=== PATIENT | female | born 1995 | race African-American/Black ===

== ENCOUNTER 2024-10-02 14:26 | Outpatient (RCR) | payer BC, MEDICAID, SELFPAY ==
[2024-09-11 13:40] VITALS: BP 132/62; PULSE 88; BMI 63.1
[2024-09-18 16:48] VITALS: BP 148/74; PULSE 100
[2024-09-25 16:29] VITALS: BP 137/74; PULSE 94
--- NOTE | ~2024-10-02 | US_ITS ---
LIMITED OBSTETRIC ULTRASOUND/BIOPHYSICAL PROFILE Ordering provider: Angelito Berry MD History: . Y . Comparison: None. FINDINGS: MATERNAL CERVIX: Not visualized. cm which is normal (normal is equal to or greater than 3.0 cm). PRESENTATION: Vertex Longitudinal lie. PLACENTAL LOCATION: Posterior fundal. No previa. HEART RATE: 136 bpm (normal is between 110 to 160 bpm). AMNIOTIC FLUID INDEX: 12.9 cm. 5th percentile is 7.7 cm. 95th percentile is 24.4 cm. Largest vertica l pocket is 6.4 cm. normal (NUVIA between 5-25 cm in from 20-35 weeks gestation is considered normal). OTHER: Maternal ovaries not visualized. SCORE: breathing movements: 2 movements: 2 tone: 2 Amniotic fluid volume: 2 Total: 8 IMPRESSION: Normal biophysical profile. Reviewed, dictated and finalized at location A. IMPRESSION: Normal biophysical profile.
[2024-10-02 14:26] VITALS: BP 130/78; PULSE 98
== END 2024-10-25 09:57 | disposition other institution (70) ==
LOC: ANHOBOP 14:26
PROVIDERS: Visit Provider Obstetrics & Gynecology
DX: O26.03 Excessive weight gain in pregnancy, third trimester (principal); Z3A.34 34 weeks gestation of pregnancy
CPT/HCPCS: 59025; 76815; 76819

== ENCOUNTER 2024-10-11 12:39 | Outpatient (CLI) | payer BC, MEDICAID, SELFPAY ==
[2024-10-11 13:16] LABS: Hematocrit 28.7 % (37.0-47.0); Hemoglobin 8.4 g/dL (12.0-15.0); Mean Corpuscular HGB Conc 29.3 g/dl (32-36); Mean Corpuscular Hemoglobin 21.8 pg (26-34); Mean Corpuscular Volume 74.4 fl (80-100); Mean Platelet Volume 8.5 fl (7.4-10.4); Platelet Count Result 332 k/mm3 (150-375); Red Blood Count 3.86 M/mm3 (4.2-5.4); Red Cell Distribution Width 18.2 % (11.5-14.5); White Blood Count 10.3 K/mm3 (4.5-10.0)
[2024-10-11 14:22] LABS: Syphilis IgG/IgM Antibody Non-Reactive (Nonreactive)
== END 2024-10-11 12:40 | disposition home or self-care (01) ==
PROVIDERS: Visit Provider Obstetrics & Gynecology
DX: Z34.93 Encounter for supervision of normal pregnancy, unspecified, third trimester (principal); Z3A.00 Weeks of gestation of pregnancy not specified
CPT/HCPCS: 36415; 85027; 86593; 86850; 86900; 86901

== ENCOUNTER 2024-10-13 10:03 | Inpatient (IN) | payer BC, MEDICAID, SELFPAY ==
[2024-10-13] VITALS (91 sets, daily range): BP systolic 55–140; BP diastolic 29–106; PULSE 62–146; RESP 14–21; TEMP 36.4–37; O2SAT 96–100; BMI 65.7
[2024-10-13] MEDS: LACTATED RINGERS 250 ML 999 ML IVPB (10:30)
[2024-10-13] MEDS: ACETAMINOPHEN 500 MG TABLET 1000 MG PO ×2 (10:35→20:55)
--- NOTE | 2024-10-13 11:36 | LDADM ---
This patient, Rodney Grande, was admitted to Labor/Delivery/Recovery 119 on 10/13/24 at 10:03. Plans for section, pain management and were discussed with patient. Patient/family oriented to hospital policies and general routines including ID bracelet, bed and alarms, visiting hours, pain management, procedures, bathroom and other care routines, personal items, smoking policy, room service/diet and guest tray routines, security routines, and visiting hours. Patient/Family are encouraged to report perceived risks to care and to ask questions if they do not understand what they are told or what they should do. See OBIX for further documentation.
--- NOTE | 2024-10-13 11:59 | P.PNAN_ITS ---
Anes - Initial Pre Proc Eval Procedure: Operation Date: 10/13/24 12:00 Proposed Procedures p Section - Angelito Berry MD Date/Time: 10/13/24 11:59 Surgeon: Angelito Berry MD Pre Op Diagnosis: LFGA Pre Op Diagnosis: c section Patient Data Age: 29 Gender: F Height: 1.78 m Weight: 208 kg Last Vital Signs Temp 98.2 F 10/13/24 11:53 Pulse 100 10/13/24 11:58 Resp 16 10/13/24 11:53 BP 133/73 10/13/24 11:58 Pulse Ox 98 10/13/24 11:53 O2 Del Method Room Air 10/13/24 10:40 Allergies Allergy/AdvReac Type Severity Reaction Status Date / Time No Known Allergies Allergy Verified 10/11/24 12:24 Home Medications ?Medication ?Instructions ?Recorded ?Confirmed ?Type vit no.95-ferrous 1 tablet PO DAILY 10/11/24 10/13/24 History fumarate 28 mg-folic acid 800 mcg tablet () Laboratory Tests 10/13/24 10:48 Crossmatch See Detail Patient hx anesthesia problems: none Family hx anesthesia problems: none Results Review: All pre-operative results and documents have been reviewed as part of the pre- operative evaluation. [facility] Past Medical History Medical History Anemia and not yet delivered Morbid obesity Social History Social History Smoking status: Never smoker Substance use: never Do You Feel Safe in your Home?: Yes Lack of Transportation: No Lack of Food: Never True Current Housing: I Have Housing Concerned About Future Housing: No Difficulty Paying Gas/Electric Bills: No Difficulty Paying for Meds: No Currently Unemployed: No Education: High School Diploma/GED Difficulty w/ Childcare or Family Care: No Spiritual care concerns: No Anes - Eval Final PreProcedure Day of Procedure 10/13/24 11:59 Patient weight: super morbidly obese Heart: regular rate and rhythm Lungs: decreased breath sounds Airway: Mallampati scale class II Neurological: alert and oriented Last oral intake: >/= 8 hours ASA classification: IV Emergent: no Anesthetic plan: proceed Anesthesia type and monitoring: regional epidural and standard monitoring Results Review: All pre-operative results and documents have been reviewed as part of the pre- operative evaluation. Informed Consent: The patient's anesthetic plan and its attendant risks and benefits were discussed with the patient/family/POA. Questions were solicited and answers provided to the satisfaction of the patient/family/POA.
[2024-10-13] MEDS: ONDANSETRON INJ 4 MG/2 ML VIAL IV PUSH ×2 (12:04→19:40)
[2024-10-13] MEDS: FAMOTIDINE 20 MG/2 ML VIAL IV PUSH (12:04)
[2024-10-13] MEDS: SODIUM CHLORIDE 0.9% IV 250 ML 30 ML IV CONT (12:05)
[2024-10-13] MEDS: SODIUM CHLORIDE 0.9% IV 1,000 ML 125 ML (12:05)
--- NOTE | 2024-10-13 12:08 | P.HP_ITS ---
H&P: HPI History of Present Illness Date/Time: 10/13/24 12:08 Chief Complaint: Term Narrative: This patient is a 29-year-old primiparous female at term who presents for elective . She has elected to have due to overall safety concerns that I expressed to the patient. She has a estimated weight of about 4200 g. She has a BMI of 63. We have agreed to proceed with del sheyla. She understands risks, benefits, and alternatives. She has completed informed consent process is ready to proceed. The patient understands the details of the procedure. The procedure has been explained in detail. She understands the risks. She understands that injuries may occur that result in hospitalization, more surgery, and severe illness. She understands risk of hemorrhage and infection. She denies any chest pain or shortness of breath. She denies any nausea, vomiting, fever, chills. Review of Systems Review of Systems: All systems reviewed & are unremarkable except as noted in HPI and below Constitutional: Constitutional: Denies chills, Denies fatigue, Denies fever(s) and Denies weakness Eyes: Eyes: Denies blurry vision, Denies change in vision, Denies loss of peripheral vision, Denies loss of vision, Denies other visual disturbances and Denies eye pain ENT: Denies vertigo, Denies dizziness, Denies hearing loss, Denies mouth pain, Denies nasal obstruction, Denies neck mass and Denies neck pain Cardiovascular: Cardiovascular: Denies chest pain, Denies diaphoresis, Denies syncope, Denies leg edema and Denies dyspnea Respiratory: Respiratory: Denies chest congestion, Denies cough, Denies hemoptysis, Denies dyspnea and Denies wheezing Gastrointestinal: Gastrointestinal: Denies abdominal pain, Denies constipation, Denies diarrhea, Denies nausea and Denies vomiting Genitourinary: Genitourinary: Denies hematuria, Denies change in libido, Denies nocturia, Denies genital lesions, Denies flank pain and Denies urinary urgency Musculoskeletal: Musculoskeletal: Denies abnormal gait, Denies back pain, Denies myalgias, Denies arthralgias, Denies joint swelling, Denies muscle w eakness and Denies neck pain Integumentary/Breasts: Skin/Breast: Denies swelling, Denies breast pain, Denies breast mass, Denies dry skin, Denies nipple discharge, Denies unusual bruising and Denies jaundice Neurologic: Denies Neuro-related abnormal movements, Denies Abnormal speech present, Denies abnormal gait, Denies behavioral changes, Denies confusion, Denies vertigo, Denies dizziness, Denies syncope, Denies loss of vision, Denies memory loss, Denies convulsions and Denies weakness Psychiatric: Psychiatric: Denies abnormal sleep pattern, Denies behavioral changes, Denies change in libido, Denies confusion, Denies depression, Denies anhedonia and Denies memory loss Endocrine: Endocrine: Reports no additional endocrine complaints, Denies change in libido and Denies fatigue Hematologic/Lymphatic: Hematologic/Lymphatic: Reports no additional hematologic/lymphatic complaints Allergic/Immunologic: Allergic/Immunologic: Reports no additional allergic/immunologic complaints and Denies wheezing PMFSH Past Medical History Medical History Anemia and not yet delivered Morbid obesity Social History Social History Smoking status: Never smoker Substance use: never Do You Feel Safe in your Home?: Yes Lack of Transportation: No Lack of Food: Never True Current Housing: I Have Housing Concerned About Future Housing: No Difficulty Paying Gas/Electric Bills: No Difficulty Paying for Meds: No Currently Unemployed: No Education: High School Diploma/GED Difficulty w/ Childcare or Family Care: No Spiritual care concerns: No Meds Home Medications and Allergies Home Medications ?Medication ?Instructions ?Recorded ?Confirmed ?Type vit no.95-ferrous 1 tablet PO DAILY 10/11/24 10/13/24 History fumarate 28 mg-folic acid 800 mcg tablet () Allergies Allergy/AdvReac Type Severity Reaction Status Date / Time No Known Allergies Allergy Verified 10/11/24 12:24 Vital Signs Vital Signs - 24 hr 10/13/24 10:32 10/13/24 10:40 10/13/24 11:01 Temperature Pulse Rate 104 H Respiratory Rate Blood Pressure 115/62 Pulse Oximetry 98 Oxygen Delivery Room Air 10/13/24 11:03 10/13/24 11:06 10/13/24 11:11 Temperature Pulse Rate 99 Respiratory Rate Blood Pressure 125/68 Pulse Oximetry 100 99 Oxygen Delivery 10/13/24 11:15 10/13/24 11:16 10/13/24 11:18 Temperature Pulse Rate 95 92 108 H Respiratory Rate Blood Pressure 116/63 116/69 110/65 Pulse Oximetry 99 Oxygen Delivery 10/13/24 11:21 10/13/24 11:25 10/13/24 11:26 Temperature Pulse Rate 125 H 107 H 115 H Respiratory Rate Blood Pressure 118/89 130/61 104/51 L Pulse Oximetry 98 100 Oxygen Delivery 10/13/24 11:28 10/13/24 11:31 10/13/24 11:34 Temperature Pulse Rate 97 99 97 Respiratory Rate Blood Pressure 110/50 L 125/56 L 123/59 L Pulse Oximetry 97 Oxygen Delivery 10/13/24 11:36 10/13/24 11:38 10/13/24 11:41 Temperature Pulse Rate 103 H 98 106 H Respiratory Rate Blood Pressure 121/52 L 114/56 L 124/41 L Pulse Oximetry 99 98 Oxygen Delivery 10/13/24 11:43 10/13/24 11:46 10/13/24 11:49 Temperature Pulse Rate 88 100 106 H Respiratory Rate Blood Pressure 116/65 108/87 55/43 L Pulse Oximetry 98 Oxygen Delivery 10/13/24 11:51 10/13/24 11:53 10/13/24 11:53 Temperature 98.2 F Pulse Rate 121 H 119 H 107 H Respiratory Rate 16 Blood Pressure 99/40 L 120/42 L 120/42 L Pulse Oximetry 97 98 Oxygen Delivery 10/13/24 11:56 10/13/24 11:58 10/13/24 12:01 Temperature Pulse Rate 103 H 100 100 Respiratory Rate Blood Pressure 116/66 133/73 115/71 Pulse Oximetry Oxygen Delivery Exam Const: General: cooperative, healthy appearing, comfortable and no acute di stress Orientation/consciousness: oriented to person, oriented to place and oriented to time HENMT: Head: normal to inspection Ears: external ears normal Face/Nose/Sinus: Normal external nose present and normal facial exam Face and sinus: normal facial exam Eyes: General: appearance normal, both eyes and all related structures Neck: Neck: normal visual inspection, trachea midline and supple Resp: Auscultation: clear to auscultation bilaterally, no crackles, no rales, no rhonchi and no wheezes Cardio: Rate: regular rate Rhythm: regular rhythm Heart sounds: no cli ck, no murmurs and no rubs GI: GI Palp: No abdominal tenderness, No Soft to palpation, No Tenderness to palpation present (GI) and No Palpable mass present Auscultation: normal bowel sounds Skin: General skin exam: normal color and no rashes or lesions noted Neuro: General: oriented to person, oriented to place and oriented to time Extrem: General: normal to inspection, no joint enlargement, no clubbing, cyanosis or edema, no pedal edema and no calf tenderness Psych: Appearance: grossly normal Mental Status: mental status grossly normal Speech and movement: Normal speech and movement present Assessment and Plan Assessment and plan (1) Delivery by elective section: Code(s): O82 - Encounter for delivery without indication Status: Acute (2) Large for gestational age fetus: Status: Acute (3) Obesity complicating in third trimester: Code(s): O99.213 - Obesity complicating , third trimester Status: Acute Plan This patient is a 29-year-old primiparous female at term who presents for elective . She has elected to have due to overall safety concerns that I expressed to the patient. She has a estimated weight of about 4200 g. She has a BMI of 63. We have agreed to proceed with delivery. She understands risks, benefits, and alternatives. She has completed informed consent process is ready to proceed.
--- NOTE | 2024-10-13 12:11 | WPDHPUPDATE1 ---
History and Physical Update Update Date/Time: 10/13/24 12:11 History and Physical has been reviewed, including an updated exam of the patient. There are NO changes in the patient's condition. Risks, benefits, and alternatives have been discussed and questions answered. Patient agrees to proceed with procedure.
[2024-10-13] MEDS: ceFAZolin 3 GM/D5W 100 ML 100 ML IVPB (12:40)
--- NOTE | 2024-10-13 13:44 | W.PM.OBCSD ---
OB - Delivery Note Procedure Delivery date: 10/13/24 Pre-op diagnosis: Macrosomia Post-op Diagnosis: Same Procedure Performed: Primary Surgeon: Angelito Berry MD Anesthesia type: Epidural Description of Procedure/Findings: The patient was taken the operating room.? She was prepped and draped in dorsal supine position with a leftward tilt.? This was done after spinal anesthetic was applied.? A low-transverse skin incision was made and carried down till of the fascia with the knife.? The fascial incision was made with the knife.? The fascial incision was extended laterally with Marina scissors.? The fascia was tented upward superiorly and inferiorly the rectus muscles were dissected off bluntly.? The rectus muscles were the midline.? The preperitoneal fat and peritoneum were dissected open bluntly at the superior aspect of the rectus muscles.? The peritoneal incision was extended superior and inferior with good position of bladder.? The uterine incision was made with a scalpel down to the level of the amniotic cavity.? The amniotic cavity was entered bluntly.? The infant was delivered.? The cord was clamped and cut and the was handed off to waiting pediatric staff.? Cord bloods were obtained.? The placenta was removed manually.? The uterus was exteriorized.? The uterus was cleared of all clots, debris and membranes.? The uterus was closed in 0 Vicryl running lock fashion.? An imbricating over a was placed along the incision line as well.? The uterus was returned to the abdomen.? The gutters were cleared of all clots and debris.? The fascia was closed with 0 Vicryl running fashion.? The subcutaneous tissue was irrigated pinpoint bleeders were cauterized.? The skin was closed with subcuticular absorbable fantasma.? The skin incision line was covered with glue.? The patient tolerated the procedure well.? She has taken recovery room in stable condition.? Sponge lap and needle counts were correct x2.? Specimen: No Estimated Blood Loss: 275 Pathology: None sent Complications: No immediate complications Condition: Stable Disposition: PACU
[2024-10-13] MEDS: OXYTOCIN 30 UNITS/NS 500 ML 30 UNITS/500 ML BAG 125 UNITS IV CONT (14:30)
--- NOTE | 2024-10-13 16:15 | PC.NURSE ---
Patient transferred to post room #277 via bed. Support person present. Oriented to unit, room, information board, rooming in, admission packet and security measures. Patient verbalizes understanding.
--- NOTE | 2024-10-13 16:48 | PC.NURSE ---
Regarding the 1st unit if PRBCs started prior to the OR. Any vital sign documentation after 1210, see anesthesia documentation.
[2024-10-13] MEDS: POLYSACCHARIDE IRON COMPLEX 150 MG CAPSULE PO (18:47)
[2024-10-13] MEDS: SIMETHICONE 80 MG TAB.CHEW PO (18:48)
[2024-10-13] MEDS: DOCUSATE SODIUM 100 MG CAPSULE PO (18:48)
[2024-10-13] MEDS: DEXTROSE 5%/0.45% SOD CHL 1,000 ML 125 ML IV CONT (18:49)
[2024-10-13] MEDS: KETOROLAC 15 MG/ML VIAL (*BKC) IV PUSH (19:41)
[2024-10-13] MEDS: ENOXAPARIN 30 MG/0.3 ML SYRINGE SUB-Q (20:56)
[2024-10-14 00:30] VITALS: BP 119/63; PULSE 78; RESP 18; TEMP 37; O2SAT 98
[2024-10-14] MEDS: KETOROLAC 15 MG/ML VIAL (*BKC) IV PUSH ×2 (02:57→08:55)
[2024-10-14] MEDS: ACETAMINOPHEN 500 MG TABLET 1000 MG PO ×4 (02:58→21:31)
[2024-10-14 04:00] VITALS: BP 120/59; PULSE 86; RESP 18; TEMP 36.9; O2SAT 95
[2024-10-14 06:06] LABS: Basophils Percent Auto 0.2 % (0.2-1.2); Eosinophils Absolute Auto 0.2 K/mm3 (0-0.3); Eosinophils Percent Auto 1.3 % (0-4.4); Hematocrit 28.7 % (37.0-47.0); Hemoglobin 8.3 g/dL (12.0-15.0); Immature Granulocyte Absolute 0.07 K/mm3 (0.00-0.031); Immature Granulocyte Percent A 0.5 % (0-0.5); Lymphocytes Percent Auto 12.7 % (18.3-44.2); Mean Corpuscular HGB Conc 28.9 g/dl (32-36); Mean Corpuscular Hemoglobin 22.7 pg (26-34); Mean Corpuscular Volume 78.6 fl (80-100); Mean Platelet Volume 8.9 fl (7.4-10.4); Monocytes Absolute Auto 1.3 K/mm3 (0.1-0.6); Monocytes Percent Auto 9.3 % (2.6-8.5); Neutrophils Absolute Auto 10.2 K/mm3 (1.3-6.7); Platelet Count Result 332 k/mm3 (150-375); Red Blood Count 3.65 M/mm3 (4.2-5.4); Red Cell Distribution Width 18.6 % (11.5-14.5); White Blood Count 13.4 K/mm3 (4.5-10.0)
[2024-10-14 06:33] LABS: Band Neutrophils Percent 0 % (0-6); Hypochromasia 1+; Microcytosis 1+ (NORMAL); Platelet Estimate Adequate (Adequate)
[2024-10-14 06:34] LABS: Schistocytes None Seen
[2024-10-14 07:25] VITALS: BP 123/58; PULSE 78; RESP 18; TEMP 36.6; O2SAT 99
[2024-10-14] MEDS: POLYSACCHARIDE IRON COMPLEX 150 MG CAPSULE PO ×2 (08:54→15:24)
[2024-10-14] MEDS: MULTIVIT/MIN/PREN/FOL AC/IRON TABLET 1 TAB PO (08:54)
[2024-10-14] MEDS: DOCUSATE SODIUM 100 MG CAPSULE PO ×2 (08:54→15:24)
[2024-10-14] MEDS: SIMETHICONE 80 MG TAB.CHEW PO ×3 (08:54→21:31)
[2024-10-14] MEDS: ENOXAPARIN 30 MG/0.3 ML SYRINGE SUB-Q ×2 (08:55→21:31)
[2024-10-14] MEDS: LIDOCAINE 5% PATCH 1 PATCH TRANSDERM (08:56)
[2024-10-14 12:10] VITALS: BP 127/64; PULSE 76; RESP 24; TEMP 36.5; O2SAT 96
--- NOTE | 2024-10-14 12:13 | P.PNOB_ITS ---
OB - PN: Subj Subjective Date/time seen: 10/14/24 12:13 Patient comments: no complaints, pain well controlled, tolerating diet and flatus present OB - PN: Obj Data Labs 10/14/24 04:17 Labs: Laboratory Results - last 24 hr 10/13/24 10/14/24 10:48 04:17 WBC 13.4 H RBC 3.65 L Hgb 8.3 L Hct 28.7 L MCV 78.6 L D MCH 22.7 L MCHC 28.9 L RDW 18.6 H Plt Count 332 MPV 8.9 Immature Gran % (Auto) 0.5 Neut % (Auto) 76.0 H Lymph % (Auto) 12.7 L Barber % (Auto) 9.3 H Eos % (Auto) 1.3 Baso % (Auto) 0.2 Lymph # (Auto) 1.70 Barber # (Auto) 1.3 H Eos # (Auto) 0.2 Baso # (Auto) 0.0 Abs Immat Gran (auto) 0.07 H Absolute Neuts (auto) 10.2 H Absolute Nucleated RBC 0.000 Band Neutrophils % 0 Nucleated RBC % 0.0 Platelet Estimate Adequate Hypochromasia 1+ Microcytosis 1+ Schistocytes None seen Crossmatch See Detail OB - PN A/P Plan day: 1 Comments: Post Op LTCS - no problems, routine recovery Time Spent With Patient Time: Total time spent is greater than 50% in coordination of care (as documented) at patient's floor/unit and/or counseling patient: Exam 2 Const: General: cooperative, healthy appearing, comfortable and no acute distress Resp: Auscultation: no crackles, no rales, no rhonchi and no wheezes Cardio: Rhythm: regular rhythm Heart sounds: no click and no murmurs GI: Inspection: non-distended Auscultation: normal bowel sounds Extrem: General: normal to inspection, no pedal edema and no calf tenderness
--- NOTE | 2024-10-14 14:04 | WPDANLDNPN2 ---
Anes-Prog Note L&D-Neuraxial Date/Time: 10/14/24 14:04 Neuraxial medications: intrathecal PF morphine Opiod-related complaints: none Patient feedback: Patient satisfied with post-operative pain management.
--- NOTE | 2024-10-14 14:04 | WPDANLDPN2 ---
Anes-Prog Note L&D Date/Time: 10/14/24 14:04 Comfortable throughout: section Neuraxial method: epidural Epidural/Spinal procedure site: clean & non-tender Neuro status: Neuro function grossly intact. Cardiovascular status: normal Respiratory status: normal Airway patency: baseline Mental status: baseline Post-Op hydration status: normal Vital Signs: Last Vital Signs Temp 97.7 F 10/14/24 12:10 Pulse 76 10/14/24 12:10 Resp 24 H 10/14/24 12:10 BP 127/64 10/14/24 12:10 Pulse Ox 96 10/14/24 12:10 O2 Del Method Room Air 10/13/24 15:55 Pain score (VAS): 0/10 I/O: Intake & Output 10/13/24 10/14/24 10/14/24 23:59 07:59 15:59 Intake Total 350 240 Output Total 900 400 Balance 350 -900 -160 Post-procedural complaints: none Patient feedback: Patient satisfied with anesthetic care.
[2024-10-14] MEDS: IBUPROFEN 600 MG TABLET PO ×2 (15:24→21:31)
[2024-10-14 23:35] VITALS: BP 128/82; PULSE 81; RESP 20; TEMP 36.8; O2SAT 98
[2024-10-15] MEDS: IBUPROFEN 600 MG TABLET PO ×2 (03:49→09:35)
[2024-10-15] MEDS: ACETAMINOPHEN 500 MG TABLET 1000 MG PO ×2 (03:49→09:35)
[2024-10-15] MEDS: oxyCODONE HCL (*CRX) 5 MG TAB IR PO (07:32)
[2024-10-15] MEDS: SIMETHICONE 80 MG TAB.CHEW PO (07:32)
[2024-10-15] MEDS: POLYSACCHARIDE IRON COMPLEX 150 MG CAPSULE PO (07:32)
[2024-10-15] MEDS: TETANUS,DIPHTHERIA,AC PERTUSSIS ADULT (0.5 ML) BOOSTRIX IM (07:33)
[2024-10-15 07:35] VITALS: BP 131/79; PULSE 78; RESP 16; TEMP 37.1; O2SAT 98
--- NOTE | 2024-10-15 08:15 | P.PNOB_ITS ---
OB - PN: Subj Subjective Date/time seen: 10/15/24 08:15 Interval history: pp day 2 doing well desires d/c home OB - PN: Obj Data Labs 10/14/24 04:17 OB - PN A/P Plan day: 2 Plan: routine care and discharge home Time Spent With Patient Time: Total time spent is greater than 50% in coordination of care (as documented) at patient's floor/unit and/or counseling patient: Review of Systems 2 Review of Systems: All systems reviewed & are unremarkable except as noted in HPI and below Exam 2 Const: General: cooperative, healthy appearing and comfortable Chest: Chest palpation & inspection: normal inspection of the chest Resp: Effort & Inspection: normal respiratory effort Cardio: Rate: regular rate GI: Other: incision CDI Back/Spine/Pelvis: Back: no CVA tenderness Neuro: General: patient oriented x3
[2024-10-15] MEDS: DOCUSATE SODIUM 100 MG CAPSULE PO (09:35)
[2024-10-15] MEDS: MULTIVIT/MIN/PREN/FOL AC/IRON TABLET 1 TAB PO (09:35)
[2024-10-15] MEDS: ENOXAPARIN 30 MG/0.3 ML SYRINGE SUB-Q (09:36)
[2024-10-16 11:35] VITALS: BP 130/77; PULSE 102; RESP 20; TEMP 37.4; O2SAT 97
--- NOTE | 2024-11-09 21:28 | P.DS_ITS ---
DS: Admitting Diagnosis Discharge Date 10/15/24 Admitting Diagnosis term DS: Discharge Diagnosis Discharge Diagnosis (1) Delivery by elective section: Code(s): O82 - Encounter for delivery without indication Status: Acute OB - DS: Summary OB Procedures : None OB Procedures Intrapartum: OB Procedures: : None Peripartum Data Procedures: Procedures Operation Date: 10/13/24 12:00 Actual Procedure Side Surgeon p Section Not Applicable Angelito Berry MD Time Spent with Patient Time attestation: Total time spent providing and/or coordinating discharge services: Discharge Plan Discharge Attending physician on discharge: Angelito Berry Consulting providers: Kim Nicholas; Alejandro Hernández Jr. Discharging Clinician: Kim Nicholas Patient Disposition: Home Activity: pelvic rest Diet: regular Discharge Instructions: Education: Mom and Baby Guide Given to: Mother Follow-Up: Call your delivering provider's office for an appointment to be seen in: Call for appointment Mom and baby should come to the [facility] for the follow-up appointment. Appointment Date/Time: October 16, 2024 at 11:00 am What to expect at your follow-up visit: Blood Pressure Check Physical Assessment Call [phone] if you are unable to keep your appointment time. BREAST CARE: * Wear a snug supportive bra. * For engorgement discomfort: Bottle Feeding: * May apply ice packs ABDOMINAL INCISION: * Allow incision to air dry * Do NOT use lotions or powders on your incision * When showering, allow soap and water to run over the incision, but do not wash incision PERINEAL CARE: * Until bleeding stops, use your hope bottle after urinating * Change your pad frequently throughout the day * You may take sitz baths several times a day (fill your bathtub with warm water and soak for 20 minutes.) Do NOT bathe in the water * No tub baths until seen by your physician - You may shower ACTIVITY: * Rest as much as possible. * Do not exercise or lift anything heavier than your baby (such as laundry or other children.) * Avoid stairs or driving as much as possible. * Do not put anything into the vagina. No douching, tampons, or sexual activity until seen by physician. NOTIFY PHYSICIAN IF YOU HAVE ANY QUESTIONS OR IF ANY OF THE FOLLOWING SYMPTOMS OCCUR: * If your incision becomes red, swollen, or more painful than what you have experienced in the hospital. * If your vaginal bleeding becomes foul smelling. * If your vaginal bleeding becomes more heavy than a period or if your bleeding changes from pink to bright red. However, you may pass an occasional walnut- sized clot once or twice for the first week . * If you experience a sharp, shooting pain in your calves. * If you discover a hard, reddened area on your breast or if you experience flu- like symptoms. DIET: * Eat regular, well-balanced meals. * Drink plenty of fluids daily. Patient Instructions: (DC) Patient Language: Georgian Stand Alone Forms: General Discharge Information Follow-up/Referrals: Angelito Berry MD [Physician] - Discharge Medications: New oxycodone 5 mg Tablet 5 mg PO Q4H PRN (Reason: Pain Rated 4-6) Qty: 25 0RF Continued PNV no.95-ferrous fumarate-FA [] 28 mg iron- 800 mcg tablet 1 tablet PO DAILY No Action nifedipine [Procardia XL] 60 mg tablet extended release 24hr 60 mg PO DAILY Qty: 30 0RF Date of admission: 10/13/24 10:03 Primary Care Provider: PHYSICIAN,BANKRUPTCY ASSISTANT Admitting Provider: Angelito Berry Attending physician on admission: Angelito Berry Condition: Stable
== END 2024-10-15 12:33 | disposition home or self-care (01) | DRG 788 ==
LOC: ANHLDR 10:05 → ANHOB2 17:30
PROVIDERS: Admitting Provider Obstetrics & Gynecology; Visit Provider Obstetrics & Gynecology
PROC: 10D00Z1 Extraction of Products of Conception, Low, Open Approach (ICD-10-PCS; CPT 59514; principal; 2024-10-13 12:00)
DX: O36.63X0 Maternal care for excessive fetal growth, third trimester, not applicable or unspecified (principal); Z37.0 Single live birth; Z3A.39 39 weeks gestation of pregnancy; O69.81X0 Labor and delivery complicated by cord around neck, without compression, not applicable or unspecified; O99.214 Obesity complicating childbirth; E66.01 Morbid (severe) obesity due to excess calories
CPT/HCPCS: 36415; 36430; 85025; 85027; 86593; 86850; 86900; 86901; 86923; 90715; A9270; J0690; J1650; J1885; J2003; J2405; J2590; J7030; J7050; J7120; P9016

== ENCOUNTER 2024-10-21 10:41 | Outpatient (CLI) | payer BC, MEDICAID, SELFPAY ==
--- OUTSIDE RECORDS SUMMARY | 2024-10-21 11:04 | XMS_ITS | Data Portability ---
Author Organization [facility] Address [address] [place] [address] [place] [address] Assessment Encounter Date Assessment Date Assessment LastModified by Organization Details LastModified Time 09/18/2024 09/18/2024 Patient is ___weeks . Discussed plan. [email or web address] Not available 09/18/2024 09:45:00 10/01/2024 10/01/2024 Patient is ___weeks . Discussed plan. Not available 10/01/2024 18:17:03 Plan of Treatment Reminders Order Date Submit Date Provider Last Modified By Organization Details Last Modified Time Details Appointments SURG POST OP 2024 09:30A Mary LIU MD Not available Not available Not available Lab None recorded. Referral None recorded. Procedures None recorded. Surgeries section (SURG) 2024 025 [facility], [address] [facility] [address], [place], [address], 10/13/2024 15:53:10 Imaging US, obstetric , follow-up 2024 025 [facility], [facility] [address], [place], [address], 10/03/2024 18:43:06 Medication Orders None recorded. Patient TargetsNo targets recorded. Patient InstructionsNo instructions recorded. Reason for Referral None Reported. Results Created Date Observation Date Name Description Value Unit Range Abnormal Flag Note LastModifiedBy Organization Detail LastModifiedTime 09/19/1909/18/2024 CT/GC AND TRICH OMONA S VAGIN CONSTANZA (RRNA ), URINE chlamydia trachomatis, PCR Negati ve negati ve Not Available [facility] (Lab) [address] [facility], [place], [address], 09/21/2024 15:06:01 09/19/19 25 09/18/2024 CT/GC AND TRICH OMONA S VAGIN CONSTANZA (RRNA ), URINE neisseria gonorrhoeae, PCR Negati ve negati ve Not Available [facility] (Lab) [address] [facility], [place], [address], 09/21/2024 15:06:01 09/19/19 25 09/18/2024 CT/GC AND TRICH OMONA S VAGIN CONSTANZA (RRNA ), URINE trichomonas vaginalis ribosomal RNA (rrna) Negati ve negati ve Not Available [facility] (Lab) [address] [facility], [place], [address], 09/21/2024 15:06:01 09/19/19 25 09/18/2024 CULTU RE: GROUP B STREP SCREE N, REFLE X SUSCE PTIBI LITY result report SEE RESULT S BELOW Test: Cultu re: Group B Strep , Refle x Susce ptibi lity ([facility]/ [facility] ) Speci men Sourc e: Vagin a/Rec ahmet Speci men Type: Vagin al/Re ctal Speci men Date: 2024 0942 Resul t Date: 025 1403 Resul t Statu s: Final resul t Abnor mal: No Resul ting Lab: [facility] [address] [facility] [address] [facility] [address] Tel: CULTU RE ----- ----- ----- --- No Group B strep isola braydon at 2 days (ludwig ctive broth enhan cemen t) Not Available [facility] (Lab) [address] [facility], [place], [address], 09/21/2024 15:06:01 05/22/09/11/2024 US, obste tric, follo w-up No observ ation record ed. kyck [facility] [address], [place], [address], 09/11/2024 13:01:03 09/12/19 25 09/11/2024 US, obste tric, follo w-up No observ ation record ed. [facility] [address], [place], [address], 09/29/2024 15:02:02 09/12/19 25 09/11/2024 non-s tress test No observ ation record ed. [email or web address] [facility], [place], [address], 09/16/2024 23:08:26 09/19/19 25 09/18/2024 non-s tress test No observ ation record ed. [address], [place], [address], 09/22/2024 08:09:38 09/26/19 non-s tress test No observ ation [place]. [email or web address] Not Available 2024 15:02:29 09/26/19 25 09/25/2024 US, obste tric, limit ed No observ ation record ed. [address] [facility], [place], [address], 09/30/2024 10:30:41 09/26/19 25 09/25/2024 non-s tress test No observ ation record ed. [email or web address], [place], [address], 09/30/2024 08:49:14 10/02/19 25 10/01/2024 US, obste tric, follo w-up No observ ation record ed. [email or web address] [facility] [address], [place], [address], 10/01/2024 18:31:55 10/02/19 25 10/01/2024 US, obste tric, follo w-up No observ ation record ed. [email or web address] [facility] [address], [place], [address], 10/04/2024 22:08:13 10/03/19 25 10/02/2024 non-s tress test No observ ation record ed. [address], [place], [address], 10/08/2024 12:36:18 Result Notes None recorded. Problems Name Problem SNOMED Code Status Onset Date Resolution Date Notes Provider Name and Address Organization Details Recorded Time Pregnanc y 37675639 Completed 202310/21/2024 Jacqueline ziegler, [facility] 5 10:49:38 Obesity 434177487 Completed bmi - 58 Antenata l testing at 34wks schedule @ [facility] Anesthia consult Faxed order for echo 06/27 [facility] referral faxed 07/09 - Pt declined scheduli ng with MFM because echo was complete d. Pt states she will schedule with MFM if SB feels its medicall y indicate d. Lanie [facility], [facility] 5 14:44:38 Thalassrodger blanco [id number] Completed + Carrier offer fb testing Andra [facility]ao [facility], [facility] 18:20:30 Thalassrodger blanco [id number] Active + Carrier offer fb testing Andra Thao [facility], [facility] 5 18:20:30 Exceptio di large at [id number] Completed 2024 Possibly 10 lbs at 40 weeks Angelito Liu MD [address], [place], [address], [facility] 5 13:13:51 Breech presenta tion [id number] Completed 2024 rpt presenta tion 10/01 37wk Andra Master [facility] 15:02:58 Problem Notes None recorded. Procedures Surgical History Date Name Laterality Status Provider Name and Address Organization Details Recorded Time 10/14/19 25 SECTION (SURG) completed [facility] 10/14/2024 11:31:38 05/04/19 21 Date of Last Pap Smear completed [facility] 04/03/2024 16:42:00 04/23/19 19 Cholecystectomy completed [facility] 04/03/2024 16:45:02 Imaging Results None recorded. Procedure Notes None recorded. Medical Equipment None Reported. Allergies No known drug allergies Medications Name Sig Start Date Stop Date Status Note LastModified by Organization Details LastModified Time azithromycin 500 mg tablet Take 2 tablets every day by oral route for 1 day. 05/01 completed Not Available Not Available Not Available active Not Available Not Avai lable Not Available Vitals Date Recorded Body weight Body mass index (BMI) Body height Systolic blood pressure Diastolic blood pressure Provider Name and Address Organization Details Last Updated DateTime 09/18/2024 320836.1 9702 g 64 kg/m2 177.8 cm 128 mm[Hg] 81 mm[Hg] MARYJANE Gomez [facility] 09:46:04 Date Recorded Body height Body mass index (BMI) Body weight Systolic blood pressure Diastolic blood pressure Provider Name and Address Organization Details Last Updated DateTime 10/01/2024 177.8 cm 64.4 kg/m2 133500.9 7 g 143 mm[Hg] 86 mm[Hg] Nay Coley [facility] 18:17:15 Date Recorded Body height Body mass index (BMI) Body weight Systolic blood pressure Diastolic blood pressure Provider Name and Address Organization Details Last Updated DateTime 10/21/2024 177.8 cm 62 kg/m2 034311.9 g 169 mm[Hg] 95 mm[Hg] Jacqueline Alatorre [facility] 5 10:48:27 Social History Question Answer Notes LastModified by Organizat ion Details LastModified Time Do You Have An Advance Directive? Yes Information n ot available 04/03/2024 Are You Blind Or Do You Have Difficulty Seeing? No Information not available 04/03/2024 What Is Your Level Of Caffeine Consumption? Moderate Information not available 04/03/2024 How Much Tobacco Do You Chew? None Information not available 04/03/2024 In The 14 Days Before Symptom Onset, Have You Had Close Contact With A Laboratory-confirme d COVID-19 While That Case Was Ill? No Information n ot available 04/03/2024 In The 14 Days Before Symptom Onset, Have You Had Close Contact With A Person Who Is Under Investigation For COVID-19 While That Person Was Ill? No Information not available 04/03/2024 Have You Been To An Area Known To Be High Risk For COVID-19? No Information not available 04/03/2024 Are You Deaf Or Do You Have Serious Difficulty Hearing? No Information not available 04/03/2024 What Type Of Diet Are You Following? REGULAR Information n ot available 04/03/2024 What Is The Highest Grade Or Level Of School You Have Completed Or The Highest Degree You Have Received? [id number] Information not available 04/03/2024 Are There Any Guns Present In Your Home? No Information not available 04/03/2024 Do You Use Protection During Sex? No Information not available 04/03/2024 Do You Use Your Seat Belt Or Car Seat Routinely? Yes Information not available 04/03/2024 Do You Have Smoke And Carbon Monoxide Detectors In Your Home? Yes Information not available 04/03/2024 How Much Tobacco Do You Smoke? No Information not available 04/03/2024 Do You Use Sunscreen Routinely? No Information not available 04/03/2024 How Many Years Have You Smoked Tobacco? 3 Information not available 04/03/2024 Have You Used IV Drugs? No Information not available 04/03/2024 Sex: Unknown Functional Status Question Answer Note LastModified by Organizat ion Details LastModified Time Do you use any illicit or recreational drugs? No Information not available 04/03/2024 What is your level of alcohol consumption? None Information not available 04/03/2024 Are you able to walk? 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 Occasional Information not available 04/03/2024 Mental Status Question Answer Note LastModified by Organization D etails LastModified Time Do you feel stressed (tense, restless, nervous, or anxious, or unable to sleep at night)? [id number] Information not available 04/03/2024 Family History Relationship Description Onset Age of this Age Resolved Age Notes LastModified by Organization Details LastModified Time Unspecified Relation Family history unknown Not available 2023 16:41:46 Medical History Condition Response No Past Medical History Y Gynecological History Statement/Question Response Flow Light Date of LMP 01/12/2024 On BCP's at Conception? N N Was last menstrual period normal N STIs/STDs N HPV Vaccine Y Duration of Flow (days) 4 Current Control Method None Age at First Child 28 Are cycles usually normal Y Frequency of Cycle (Q days) 28 Sexually Active? Y None Menses Monthly Y Age of first menstrual cycle 12 Date of Last Pap Smear 05/04/2020 Sexual Problems? N LMP Definite N Obstetrics History GPAL:G 1 P 1 0 0 1 Type Value Full Term 1 Living 1 Total 1 Past Encounters Encounter ID Performer Location Encounter Start Date Encounter Closed Date Diagnosis/Indication Diagnosis SNOMED-CT Code Diagnosis ICD10 Code Diagnosis Note [id number] MD Maude Johnston [address],[facility] [place] [address] 04/03/2024 15:29:45 04/03/2024 16:47:32 screening 435926918 Z36.82 Z3A.11 [id number] MD Maude Johnston [address],[place] [address] 04/03/2024 15:30:06 04/03/2024 17:11:08 Routine care 280202725 Z34.90 Gestation period, 12 weeks 70670897 Z3A.12 [id number] MD Maude Johnston [address],[place] [address] 05/01/2024 14:06:37 05/01/2024 15:13:59 Routine care 190836901 Z34.90 [id number] MD Maude Johnston [address],[place] [address] 05/29/2024 14:24:27 05/29/2024 16:00:22 screening for malformation 402093083 Z36.3 O99.210 Z3A.19 [id number] MD Maude Johnston [address],[place] [address] 05/29/2024 14:26:35 05/29/2024 16:25:16 Routine care 565046215 Z34.90 [id number] MD Maude Johnston [address],[place] [address] 06/26/2024 14:03:13 06/26/2024 16:07:29 screening 005957884 Z36.2 O99.210 Z3A.23 [id number] MD Maude Johnston [address],[place] [address] 06/26/2024 14:30:44 06/26/2024 16:07:17 Routine care 719797886 Z34.90 [id number] MD Maude Johnston [address],[place] [address] 07/24/2024 13:50:56 07/24/2024 14:35:47 Routine care 303746458 Z34.90 [id number] MD Maude Johnston [address],[place] [address] 08/14/2024 17:05:38 08/15/2024 08:13:07 [id number] Angelito Liu MD [facility] [address],[place] [address] 09/11/2024 12:06:01 09/11/2024 12:55:42 Follow-up encounter 836944003 Z36.2 O36.63X0 Z3A.34 [id number] MD Maude Johnston [address],[place] [address] 09/11/2024 12:10:28 09/11/2024 13:29:23 Third trimester 81780535 Z34.03 [id number] MD Maude Johnston [address],[place] [address] 09/18/2024 09:34:00 09/18/2024 10:17:16 Third trimester 90546363 Z34.03 [id number] Angelito Liu MD [facility] [address],[place] [address] 10/01/2024 17:10:11 10/02/2024 09:08:46 Maternal obesity complicating , childbirth and the puerperium, antepartum 4576168460 07 O99.210 O36.60X0 Z3A.37 [id number] MD Maude Johnston [address],[place] [address] 10/01/2024 17:10:24 10/02/2024 04:42:23 Suspected macrosomia 440236969 O36.63X0 Health Concerns Section Related Observation LastModified by Organization Detai ls LastModified Time None Recorded Concern Status LastModified by Organization Details LastModified Time None Recorded Advance Directives Directive Y: Payers Insurance Date Sequence Insurance Name Policy Number Policy Wild Covered Member ID Wild Member ID Guarantor Name 10/21/2024 1 [place] [id number] 1 Rodney Harjinder [id number] Rodney A Harjinder 10/21/2024 2 [place] [facility]PART[facility] OF PUBLIC AID Rodney Harjinder [id number] Rodney A Harjinder OBGyn Episode Ob Episode Information Episode Created Date Number of Fetuses Patient Bloodtype Patient rh Status Prepregnancy Weight lbs Domestic Partner Domestic Partner Phone Father Name Press Clipper Status 04/03/20 24 1 A Positive 406 CLOSED Fetus Data First Name Last Name Admitted to NICU Weight (g) Sex Living Outcome Pediatric Complications Fetus ID Race Codes Race Delivery Type Dallyc e false 4394.17 25 F true Full Term [id number] Primary Problems Problem Notes unable to get cardiac views x2, echo completed 07/23/24 echo wnl Problem Name Start Date End Date Resolution Snomed Code Not e Obesity 605688553 bmi - 58An tenatal testing at 34wks schedule @ [facility] consultFaxed order for echo 06/27 [facility] referral [facility] 07/09 - Pt declined scheduling with MFM because echo was completed. Pt states she will schedule with MFM if SB feels its medically indicated. Thalassemia [id number] + Bisi r offer fb testing Breech presentation 09/29/2024 [id number] rpt presentation us 10/01 37wk Exceptionally large at 09/11/2024 [id number] Possibly 10 lbs at 40 weeks Romie Calculation Initial Romie Date Initial Exam Date Initial Exam Provider Initial Ultrasound Date Last Menstrual Period Date Ultra Sound Weeks Gestation 04/03/2024 04/03/2024 01/12/2024 12 Eighteen To Twenty Week Romie Update Ultra Sound Date Fundal Height At Umbil Quickening Date Ultra Sound Latest Weeks Gestation Final Romie Confirmed By Final Romie Confirmed Date Final Romie Date Ultra Sound Latest Days Gestation 0 [email or web address] 04/03/2024 10/19/19 25 0 Pre- Flowsheet Flowsheet Date 04/03/2024 Red Score Blood Edema Fundus Height Fundus Units Glucose Ketones Leukocytes Nitrite Labor Signs Protein Cervic Dilation Cervic Effacement Cervic Station Type Weight in lbs Pre/Post Dialysis Refused Weight 406.206194915574 BP Diastolic BP Location Tested BP Systolic BP Type 82 L wrist 138 sitting Fetus Heart Rate Present Fetus Movement A No Comments this patient is a 28-year-ol d multiparous female at 12 weeks' gestation who presents for initial care. She has a history of term vaginal births. Her medical, surgical, obstetric history is unremarkable. She is vaccinated. She was given precautions recommendations for . We talked about vaccines in . Talked about care in detail. She is having genetic testing. She had a normal 12 week ultrasound. To begin routine care. Flowsheet Date 05/01/2024 Red Score Blood Edema Fundus Height Fundus Units Glucose Ketones Leukocytes Nitrite Labor Signs Protein Cervic Dilation Cervic Effacement Cervic Station Type Weight in lbs Pre/Post Dialysis Refused 409.771404762200 BP Diastolic BP Location Tested BP Systolic BP Type 86 L arm 124 sitting Fetus Heart Rate Present A 145 Fetus Movement A No Comments no complaints, no problems, routine care, no contractions, no vaginal bleeding, no loss of fluid, no cramping discussed thalassemia, to ask partner about testing, early diabetes testing today Flowsheet Date 05/29/2024 Red Score Blood Edema Fundus Height Fundus Units Glucose Ketones Leukocytes Nitrite Labor Signs Protein Cervic Dilation Cervic Effacement Cervic Station Type Weight in lbs Pre/Post Dialysis Refused BP Diastolic BP Location Tested BP Systolic BP Type Fetus Heart Rate Present Fetus Movement Comments Flowsheet Date 05/29/2024 Red Score Blood Edema Fundus Height Fundus Units Glucose Ketones Leukocytes Nitrite Labor Signs Protein Cervic Dilation Cervic Effacement Cervic Station Type Weight in lbs Pre/Post Dialysis Refused 417.811094866803 BP Diastolic BP Location Tested BP Systolic BP Type 84 L arm 140 sitting Fetus Heart Rate Present A 144 Fetus Movement A Yes Comments no complaints, no problems, routine care, no contractions, no vaginal bleeding, no loss of fluid, no cramping, Flowsheet Date 06/26/2024 Red Score Blood Edema Fundus Height Fundus Units Glucose Ketones Leukocytes Nitrite Labor Signs Protein Cervic Dilation Cervic Effacement Cervic Station Type Weight in lbs Pre/Post Dialysis Refused BP Diastolic BP Location Tested BP Systolic BP Type Fetus Heart Rate Present Fetus Movement Comments Flowsheet Date 06/26/2024 Red Score Blood Edema Fundus Height Fundus Units Glucose Ketones Leukocytes Nitrite Labor Signs Protein Cervic Dilation Cervic Effacement Cervic Station 23 cm Type Weight in lbs Pre/Post Dialysis Refused 425.77572081103 BP Diastolic BP Location Tested BP Systolic BP Type 85 L arm 151 sitting Fetus Heart Rate Present A 145 Fetus Movement A Yes Comments no complaints, no problems, routine care, no contractions, no vaginal bleeding, no loss of fluid, no cramping Flowsheet Date 07/24/2024 Red Score Blood Edema Fundus Height Fundus Units Glucose Ketones Leukocytes Nitrite Labor Signs Protein Cervic Dilation Cervic Effacement Cervic Station Type Weight in lbs Pre/Post Dialysis Refused 426.318798633202 BP Diastolic BP Location Tested BP Systolic BP Type 81 L wrist 116 sitting Fetus Heart Rate Present A 145 Present Fetus Movement A Yes Comments no complaints, no problems, routine care, no contractions, no vaginal bleeding, no loss of fluid, no cramping Flowsheet Date 08/14/2024 Red Score Blood Edema Fundus Height Fundus Units Glucose Ketones Leukocytes Nitrite Labor Signs Protein Cervic Dilation Cervic Effacement Cervic Station Type Weight in lbs Pre/Post Dialysis Refused Weight 433.513170161852 BP Diastolic BP Location Tested BP Systolic BP Type 86 L arm 135 sitting Fetus Heart Rate Present A 145 Present Fetus Movement A Yes Comments no complaints, no problems, routine care, no contractions, no vaginal bleeding, no loss of fluid, no cramping Flowsheet Date 09/11/2024 Red Score Blood Edema Fundus Height Fundus Units Glucose Ketones Leukocytes Nitrite Labor Signs Protein Cervic Dilation Cervic Effacement Cervic Station Type Weight in lbs Pre/Post Dialysis Refused BP Diastolic BP Location Tested BP Systolic BP Type Fetus Heart Rate Present Fetus Movement Comments Flowsheet Date 09/11/2024 Red Score Blood Edema Fundus Height Fundus Units Glucose Ketones Leukocytes Nitrite Labor Signs Protein Cervic Dilation Cervic Effacement Cervic Station neg none Type Weight in lbs Pre/Post Dialysis Refused 439.739522705940 BP Diastolic BP Location Tested BP Systolic BP Type 84 L arm 132 sitting Fetus Heart Rate Present A 145 Fetus Movement A Yes Comments no complaints, no problems, routine care, no contractions, no vaginal bleeding, no loss of fluid, no cramping Flowsheet Date 09/18/2024 Red Score Blood Edema Fundus Height Fundus Units Glucose Ketones Leukocytes Nitrite Labor Signs Protein Cervic Dilation Cervic Effacement Cervic Station neg none Type Weight in lbs Pre/Post Dialysis Refused 446.525086874023 BP Diastolic BP Location Tested BP Systolic BP Type 81 128 Fetus Heart Rate Present A 144 Fetus Movement A Yes Comments no complaints, no problems, routine care, no contractions, no vaginal bleeding, no loss of fluid, no cramping. you NST to follow, Flowsheet Date 10/01/2024 Red Score Blood Edema Fundus Height Fundus Units Glucose Ketones Leukocytes Nitrite Labor Signs Protein Cervic Dilation Cervic Effacement Cervic Station Type Weight in lbs Pre/Post Dialysis Refused BP Diastolic BP Location Tested BP Systolic BP Type Fetus Heart Rate Present Fetus Movement Comments Flowsheet Date 10/01/2024 Red Score Blood Edema Fundus Height Fundus Units Glucose Ketones Leukocytes Nitrite Labor Signs Protein Cervic Dilation Cervic Effacement Cervic Station Type Weight in lbs Pre/Post Dialysis Refused Weight 449.944977957123 BP Diastolic BP Location Tested BP Systolic BP Type 86 L arm 143 sitting Fetus Heart Rate Present A 145 Fetus Movement A Yes Comments no complaints, no problems, routine care, no contractions, no vaginal bleeding, no loss of fluid, no cramping Flowsheet Date 10/13/2024 Red Score Blood Edema Fundus Height Fundus Units Glucose Ketones Leukocytes Nitrite Labor Signs Protein Cervic Dilation Cervic Effacement Cervic Station Type Weight in lbs Pre/Post Dialysis Refused BP Diastolic BP Location Tested BP Systolic BP Type Fetus Heart Rate Present Fetus Movement Comments Flowsheet Date 10/21/2024 Red Score Blood Edema Fundus Height Fundus Units Glucose Ketones Leukocytes Nitrite Labor Signs Protein Cervic Dilation Cervic Effacement Cervic Station Type Weight in lbs Pre/Post Dialysis Refused Weight 432.00095113108 BP Diastolic BP Location Tested BP Systolic BP Type 95 L wrist 169 sitting Fetus Heart Rate Present Fetus Movement Comments Menstrual History Last Menstrual Date Menses Monthly On Bcp Conception Prior Menses Frequency Hcg Plus Date Menarche Onset Age 0901/12/2024 true 28 Delivery Information Delivery Date Delivery Type Labor Anesthesia Weeks Gestation Incision Type Labor Labor Length Hrs Delivered By Post Complications Tubal Sterilization Discharge Date Comments 5 Induce d 39.2 Low Transvers e false None false Discharge Information Feeding Method Contraceptive Method Maternal HG B and HCT Levels
--- OUTSIDE RECORDS SUMMARY | 2024-10-21 11:04 | XMS_ITS | Clinical Summary ---
Author Organization [facility] System Address [address] [place] [address] Care Team Providers Care Crop Duster Helper Name Role Phone Serge Motta CONCESSIONS MANAGER Primary Care Provider Unavaila ble Allergies No known active allergies Active Problems Problem Noted Date Diagnosed Date Cholangitis 07/09/2018 History of cholelithiasis 06/08/2018 Class 3 severe obesity due t o excess calories with body mass index (BMI) of 60.0 to 69.9 in adult 06/07/2018 Social History Tobacco Use Types Packs/Day Years Used Date Smoking Tobacco: Never Assessed Comments Unknown Sex and Gender Information Value Date Recorded Sex Assigned at Not on file Legal Sex Female 4:55 PM CDT Gender Identity Not on file Sexual Orientation Not on file Last Filed Vital Signs Vital Sign Reading Time Taken Comments Blood Pressure 124/80 08/15/2018 8:10 AM CDT Pulse 73 08/15/2018 8:10 AM CDT Temperature 36.7 C (98.1 F) 08/15/2018 8:10 AM CDT Respiratory Rate 16 08/15/2018 8:10 AM CDT Oxygen Saturation 98% 08/15/2018 8:10 AM CDT Inhaled Oxygen Concentration - - Weight 182.8 kg (403 lb) 08/15/2018 8:10 AM CDT Height 177.8 cm (5' 10) 05/24/2018 2:45 PM LAWN TECHNICIAN Body Mass Index 57.82 05/24/2018 2:45 PM LAWN TECHNICIAN Plan of Treatment Health Maintenance Due Date Last Done Comments Annual Physical 1998 Hepatitis C 2013 DTaP, Tdap and Td Vaccines ( 1 - Tdap) 2014 Hepatitis B Vaccines (1 of 3 - 19+ 3-dose series) 2014 Cervical Cancer Screening Pa p Smear (Age 21 to 29) Every 3 Years 08/15/2021 08/15/2018 Cervical Cancer Screening 08/15/2021 COVID-19 Vaccine ( - 2023-2 5 season) 2023 HPV Vaccines Aged Out No longer eligi ble based on patient's age to complete this topic Meningococcal B Vaccine Aged Out No l onger eligible based on patient's age to complete this topic Meningococcal Vaccine Aged Out No rafal jake eligible based on patient's age to complete this topic Pneumococcal Vaccine: Pediat rics (0 to 5 Years) and At-Risk Patients (6 to 49 Years) Aged Out No longer eligi ble based on patient's age to complete this topic RSV Immunizations Under 20 Months Aged Out No longer eligible based on patient's age to complete this topic Procedures Procedure Name Priority Date/Time Associated Diagnosis Comments CYTOPATH CERV/VAG THIN LAYER Routine 08/15/2018 12:00 AM CDT from Last 3 Months or Most Recently Relevant to Health Maintenance Results * Cytopath Cerv/Vag Thin Layer (08/15/2018 12:00 AM CDT) COPATH REPORT [address], [address] [place] [id number] Patient: ROSA GRANDE Med Rec#: Ordering MD: SERGE MOTTA : 1995 Sex: F Location: Test: [facility] PAP Collect Date: 08-15-2018 00:00 Gynecological Cytology Report Patient Name: ROSA GRANDE Med. Rec. #:[id number] : 1995 (Age: 23) Gender: F Physician(s): SERGE MOTTA Location: [facility] ([facility]) Room Number: Billing #:[id number] Copy To: Collected: 08/15/2018 Received: 08/19/2018 Reported: 08/19/2018 Final Cytologic Diagnosis Satisfactory for evaluation. Endocervical component present. Negative for Intraepithelial Lesion or Malignancy Bacterial Vaginosis This case was signed out at [facility], [address], [place] [address]. [facility]/08/19/2018 Electronically Signed Out ByAdeel Tolliver Source of Specimen(s) Vaginal, ThinPrep Clinical History Date of Last Menstrual Period: 08/09/18 Screening, last Pap not provided. Z01.419 Billing Fee Code(s): A: 16688 [facility] ORDERS INTERFACE 08/15/2018 08/19/2018 7:3 0 AM CDT us Serge Motta NP PATHOLOGY/CYTOLOGY ORDERABLES F inal Result [facility] LAB ORDERS INTERFACE US from Last 3 Months or Most Recently Relevant to Health Maintenance Insurance [facility] Care Teams Crop Duster Helper Relationship Specialty Start Date End Date Serge Motta NP PCP - General NURSE PRACTITIONER 05/24/18
--- OUTSIDE RECORDS SUMMARY | 2024-10-21 11:04 | XMS_ITS | Clinical Summary ---
Author Organization [facility] Address [address] [place] [address] Care Team Providers Care Manager Stars Name Role Phone ÁngelaRaya APRN-RESIST COATER DEVELOPER Primary Care Provider [phone] Latricia Bourgeois MD Unavailable Source Comments [facility] [employer],non-owned Affiliates and Associated Physician Practices is amultiple site organization consisting of ambulatory clinics and hospital sitesin [place], [place] and [place]. This disclosure is being madepursuant to the Care Everywhere program and may not contain all information available regarding this patient. Last updated 18.[facility] Allergies No known active allergies Medications * Be aware that medications may not be up to date on this document. Alwaysverify current medications with the patient. dicyclomine (BENTYL) 20 MG tablet as needed 06/19/2018 Active HYDROcodone-acet aminophen (NORCO) 5-325 MG tablet Take 1 tablet by mouth every 4 hours as needed for Pain 20 tablet 07/10/2018 Active Active Problems Problem Noted Date Diagnosed Date Cholangitis 07/09/2018 Encounters Date Type Department Care Team Description 07/23/2024 11:15 AM CDT Hospital Encounter [facility] Pediatrics - Cardiology [address] [place] [address] Marie Rendon MD Discharge Disposition: Home or Self Care 07/23/2024 11:15 AM CDT Hospital Encounter [facility] Pediatrics - Cardiology [address] [place] [address] Nick Berry MD Discharge Disposition: Home or Self Care from Last 3 Months Immunizations Immunization Administration Dates Next Due DTaP VACCINE IM (6wk-6yrs) 12/13/2000,,02/07/1996,11/12,1995 HEP A PEDS 2 DOSE 12/14/2009,12/05/2005 HEP B VACCINE, PED/ADOL 02/07/1996,1995, HIB BOOSTER 09/03/1996, 6,1995,09/02 Human Papilloma Virus Dania valent Vaccine 12/14/2009 MENINGOCOCCAL ACWY (MCV4P) VAC IM 12/14/2009 MMR 12/13/2000,09/03/1996 POLIO IPV 12/13/2000 POLIO OPV 02/07/1996,1995,1995 PPD 12/13/2000,01/06/1999 TDAP (7yrs+) 12/05/2005 VARICELLA 12/14/2009,01/20/2003 Family History Medical History Relation Name Comments Hypertension Maternal Grandfather Hypertension Maternal Grandmother Hypertension Other Mat aunts, uncl es Relation Name Status Comments Maternal Grandfather Maternal Grandmother Other Social History Tobacco Use Types Packs/Day Years Used Date Smoking Tobacco: Never Smokeless Tobacco: Never Alcohol Use Standard Drinks/Week Comments No 0 (1 standard drink = 0.6 oz pur e alcohol) Comments No Sex and Gender Information Value Date Recorded Sex Assigned at Not on file Legal Sex Female 6:56 AM INFLATABLE BUILDINGS LAMINATOR Gender Identity Not on file Sexual Orientation Not on file Last Filed Vital Signs Vital Sign Reading Time Taken Comments Blood Pressure 117/76 07/24/2018 10:51 AM CDT Pulse 64 07/24/2018 10:51 AM CDT Temperature 36.8 C (98.3 F) 07/24/2018 10:51 AM CDT Respiratory Rate 20 07/24/2018 10:51 AM CDT Oxygen Saturation 98% 07/24/2018 10:51 AM CDT Inhaled Oxygen Concentration - - Weight 180.5 kg (398 lb) 07/24/2018 10:51 AM CDT Height 177.8 cm (5' 10) 07/24/2018 10:51 AM CDT Body Mass Index 57.11 07/24/2018 10:51 AM CDT Plan of Treatment Health Maintenance Due Date Last Done Comments HIV SCREENING 2010 HPV VACCINE (2 - 2-dose series) 06/16/2010 12/14/2009 HEPATITIS C SCREENING 05/12/2013 DTAP/TDAP/TD VACCINES (7 - Td or Tdap) 12/06/2015 12/05/2005, 12/13/2000, 09/03/1996, Additional history exists PAP SMEAR 08/15/2021 08/15/2018 COVID-19 VACCINE ( season) 2023 DEPRESSION SCREENING 04/23/2024 INFLUENZA VACCINE (Season Ended) 2024 ZOSTER VACCINE (1 of 2) 2045 HEPATITIS B VACCINE Completed 02/07/1996, 1995, 1995 HIB VACCINE Completed 09/03/1996, 01/21, 1995, Additional history exists MENINGOCOCCAL GROUPS A/C/Y/W VACCINE Aged Out 12/14/2009 No longer eligible based on patient's age to complete this topic MENINGOCOCCAL (Group B) VACCINE SHARED DECISION-MAKING Aged Out No longer eligible based on patient's age to complete this topic PNEUMOCOCCAL VACCINE Aged Out No long er eligible based on patient's age to complete this topic Procedures Procedure Name Priority Date/Time Associated Diagnosis Comments ECHO COMPLETE CG Routine 07/23/2024 1:26 PM CDT Encounter for screening for congenital cardiac abnormalities in fetus (HCC) from Last 3 Months Results * ECHO COMPLETE CG (07/23/2024 1:26 PM CDT) MV E pk daria 29.5 cm/s SSM CV F UJI PACS MV A pk daria 48.96 cm/s [facility]SM CV F UJI PACS Anatomical Region Laterality Modality Ultrasound 07/23/2024 11:4 3 AM CDT Narrative 07/23/2024 5:07 PM CDT Name: Rodney Grande Patient Exam Info Gender: Female Patient Status: O/P : 1995 Admit Date: 07/23/2024 Exam Date/Time: 07/23/2024 11:43 AM Site: [facility] Current Location: [facility] EStaffOrdering Provider: Nick Berry Interpreting Physician: Marie Rendon MD Park Interpreter: Cornelia Aldana [facility] - Study Info Procedure: ECHO COMPLETE CG Indications: Z36.83 - Encounter for screening for congenital cardiac abnormalities in fetus (HCC) Maternal Gestational Status GA by EDC: 27 wks , 2 days EDC: 10/20/2024 Type: Carrillo Age: 29 yrs Lie: Breech Summary * The echocardiogram was within normal limits given limitations of the study. * Small atrial and ventricular septal defects and persistent ductus arteriosus cannot be excluded as findings. Anatomic Relationships Left sided cardiac apex (levocardia). There is normal visceral-cardiac situs, and normal segmental cardiac anatomical relationship. Systemic Veins There is normal systemic venous return. Pulmonary Veins The visualized pulmonary veins drain normally to the left atrium. Right Atrium The right atrial size is normal. Left Atrium The left atrial size is normal. Atrial Septum Patent foramen ovale with open foramen flap. Color flow is right to left. Right Ventricle The right ventricular cavity size is normal. The right ventricular wall thickness is normal. The right ventricular systolic function is normal. RV Outflow Tract The right ventricular outflow tract is normal. Left Ventricle The left ventricular cavity size is normal. The left ventricular wall thickness is normal. The left ventricular systolic function is normal. Ventricular Septum There is no ventricular septal defect with no shunting. LV Outflow Tract The left ventricular outflow tract is normal. Tricuspid Valve The tricuspid valve is structurally normal. The tricuspid inflow pattern is normal. Tricuspid velocity is within the normal range. There is no tricuspid regurgitation. Mitral Valve The mitral valve is structurally normal. The mitral inflow pattern is normal. Mitral velocity is within the normal range. There is no mitral regurgitation. Aorta aortic arch visualized and is without obstruction by 2D, color flow and Doppler. Pulmonary Arteries The main pulmonary artery is normal, with confluent branch pulmonary arteries. Ductus Arteriosus The antegrade flow velocity and pattern in the ductal arch is normal. A normal ductus arteriosus is appreciated. Doppler Flow in the ductus venosus is normal. The umbilical vein flow pattern is normal. The umbilical artery flow pattern is normal. Hydrops Assessment No pericardial effusion. No ascites present. No pleural effusion(s). Rhythm The rhythm is normal. There is 1:1 AV conduction. Pulmonary Valve The pulmonic valve is normal-sized. The transpulmonic velocity is within normal range. There is no pulmonic regurgitation. Aortic Valve The aortic valve is normal-sized. The transaortic velocity is within normal range. There is no aortic regurgitation. Doppler Measurements (Fetus A) Atrioventricular Valves Name Value Normal Z-Score Percentile Atrioventricular Valves Doppler TV E Peak Velocity 0.2 m/s TV A Peak Velocity 0.4 m/s MV E Peak Velocity 0.3 m/s MV A Peak Velocity 0.5 m/s (Fetus A) Semilunar Valves Name Value Normal Z-Score Percentile Semilunar Valves Doppler PV Peak Velocity. 0.7 m/s AV Peak Velocity () 0.7 m/s (Fetus A) Heart Rate Name Value Normal Z-Score Percentile Heart Rate HR 152 bpm Report Signatures Amended by Marie Rendon MD on 07/23/2024 05:22 PM Finalized by Marie Rendon MD on 07/23/2024 05:07 PM Procedure Note Marie Rendon MD - 07/23/2024 Name: Rodney Grande Patient Exam Info Gender: Female Patient Status: O/P : 1995 Admit Date: 07/23/2024 Exam Date/Time: 07/23/2024 11:43 AM Site: [facility] Current Location: [facility] EStaffOrdering Provider: Nick Berry Interpreting Physician: Marie Rendon MD Park Interpreter: Cornelia Aldana [facility] - FE Study Info Procedure: ECHO COMPLETE CG Indications: Z36.83 - Encounter for screening for congenital cardiac abnormalitiesin fetus (HCC) Maternal Gestational Status GA by EDC: 27 wks , 2 days EDC: 10/20/2024 Type: Carrillo Age: 29 yrs Lie: Breech Summary * The echocardiogram was within normal limits given limitations ofthe study. * Small atrial and ventricular septal defects and persistent ductus arteriosus cannot be excluded as findings. Anatomic Relationships Left sided cardiac apex (levocardia). There is normal visceral-cardiac situs, and normal segmental cardiac anatomical relationship. Systemic Veins There is normal systemic venous return. Pulmonary Veins The visualized pulmonary veins drain normally to the left atrium. Right Atrium The right atrial size is normal. Left Atrium The left atrial size is normal. Atrial Septum Patent foramen ovale with open foramen flap. Color flow is right toleft. Right Ventricle The right ventricular cavity size is normal. The right ventricularwall thickness is normal. The right ventricular systolic function is normal. RV Outflow Tract The right ventricular outflow tract is normal. Left Ventricle The left ventricular cavity size is normal. The left ventricular wall thickness is normal. The left ventricular systolic function is normal. Ventricular Septum There is no ventricular septal defect with no shunting. LV Outflow Tract The left ventricular outflow tract is normal. Tricuspid Valve The tricuspid valve is structurally normal. The tricuspid inflow patternis normal. Tricuspid velocity is within the normal range. There is notricuspid regurgitation. Mitral Valve The mitral valve is structurally normal. The mitral inflow pattern is normal. Mitral velocity is within the normal range. There is no mitral regurgitation. Aorta aortic arch visualized and is without obstruction by 2D, colorflow and Doppler. Pulmonary Arteries The main pulmonary artery is normal, with confluent branch pulmonary arteries. Ductus Arteriosus The antegrade flow velocity and pattern in the ductal arch is normal.A normal ductus arteriosus is appreciated. Doppler Flow in the ductus venosus is normal. The umbilical vein flow patternis normal. The umbilical artery flow pattern is normal. Hydrops Assessment No pericardial effusion. No ascites present. No pleural effusion(s). Rhythm The rhythm is normal. There is 1:1 AV conduction. Pulmonary Valve The pulmonic valve is normal-sized. The transpulmonic velocity iswithin normal range. There is no pulmonic regurgitation. Aortic Valve The aortic valve is normal-sized. The transaortic velocity is withinnormal range. There is no aortic regurgitation. Doppler Measurements (Fetus A) Atrioventricular Valves Name Value Normal Z-ScorePercentile Atrioventricular Valves Doppler TV E Peak Velocity 0.2 m/s TV A Peak Velocity 0.4 m/s MV E Peak Velocity 0.3 m/s MV A Peak Velocity 0.5 m/s (Fetus A) Semilunar Valves Name Value Normal Z-ScorePercentile Semilunar Valves Doppler PV Peak Velocity. 0.7 m/s AV Peak Velocity () 0.7 m/s (Fetus A) Heart Rate Name Value Normal Z-ScorePercentile Heart Rate HR 152 bpm Report Signatures Amended by Marie Rendon MD on 07/23/2024 05:22 PM Finalized by Marie Rendon MD on 07/23/2024 05:07 PM [facility] Marvin Berry MD [facility] Edited Result - Final from Last 3 Months Insurance MEDICAID - [place] Advance Directives * Full Code (Latest Code Status on File) Date Activated Date Inactivated Comments 07/09/2018 5:44 PM 07/10/2018 2:40 PM * Full Code Date Activated Date Inactivated Comments 07/08/2018 8:59 AM 07/09/2018 5:44 PM Care Teams Manager Stars Relationship Specialty Start Date End Date Raya Motta, WASHER ENGINEER HELPER-RESIST COATER DEVELOPER PCP - General 06/27/18 Latricia Bourgeois MD PCP - Pediatrics 01/20/09
[2024-10-21 11:20] VITALS: BP 156/92; PULSE 94
[2024-10-21 11:43] LABS: Hematocrit 32.1 % (37.0-47.0); Hemoglobin 9.2 g/dL (12.0-15.0); Immature Granulocyte Percent A 0.7 % (0-0.5); Lymphocytes Absolute Auto 1.48 K/mm3 (0.9-3.2); Mean Corpuscular HGB Conc 28.7 g/dl (32-36); Mean Corpuscular Hemoglobin 22.4 pg (26-34); Mean Corpuscular Volume 78.3 fl (80-100); Nucleated Red Blood Cells Absolute Auto 0.000 K/mm3 (0.0-0.012); Nucleated Red Blood Cells Perc 0.0 % (0.0-0.2); Platelet Count Result 446 k/mm3 (150-375); Red Blood Count 4.10 M/mm3 (4.2-5.4); White Blood Count 16.0 K/mm3 (4.5-10.0)
[2024-10-21 11:45] VITALS: BP 155/87; PULSE 96
[2024-10-21 12:00] VITALS: BP 143/81; PULSE 95
[2024-10-21 12:00] LABS: Alanine Aminotransferase 13 U/L (6-35); Albumin Level 3.3 g/dL (3.5-5.1); Alkaline Phosphatase 105 U/L (38-126); Anion Gap 10 mmol/L (4-12); Aspartate Amino Transferase 19 U/L (14-36); Bilirubin,Total 0.5 mg/dL (0.2-1.3); Blood Urea Nitrogen 6 mg/dL (7-17); Calcium 9.0 mg/dL (8.4-10.2); Carbon Dioxide 25 mmol/L (22-30); Chloride 106 mmol/L (98-107); Estimated Glomerular Filt Rate > 60; Glucose 102 mg/dL (65-110); Potassium 3.3 mmol/L (3.4-5.0); Sodium 141 mmol/L (137-145); Total Protein 7.2 g/dL (6.3-8.2); Uric Acid 6.1 mg/dL (2.5-7.5)
[2024-10-21 12:13] LABS: Schistocytes None Seen
[2024-10-21 12:15] VITALS: BP 147/80; PULSE 93
[2024-10-21 12:19] VITALS: PULSE 93
--- NOTE | 2024-10-21 12:30 | PC.NURSE ---
Spoke with Dr Berry regarding patient's results of [facility] work up at 1212. Reported all BP's during stay today. Reported most recent lab work of CBC and CMP. Dr. Berry would like patient to be seen next week in office. OK to discharge today. Dr. Berry would like patient to take procardia 60mg XL once daily. Orders sent to outpatient pharmacy. Patient instructed to come back in if she is experiencing increased swelling, headache, high BP at home, vision disturbances, and excessive weight gain. Pre-eclampsia handout handed to patient.
== END 2024-10-21 12:36 | disposition home or self-care (01) ==
LOC: ANHOBOP 10:51 → ANHOBPP 11:00
PROVIDERS: Visit Provider Obstetrics & Gynecology
DX: O13.9 Gestational [pregnancy-induced] hypertension without significant proteinuria, unspecified trimester (principal); Z3A.00 Weeks of gestation of pregnancy not specified
CPT/HCPCS: 36415; 80053; 84550; 85025; 99199